=== PATIENT | male | born 1955 | race Caucasian/White ===

== ENCOUNTER 2019-02-14 01:08 | Inpatient (IN) | payer MEDICAID ==
[~2019-02-14 01:08] MED LIST: ALBU8.5H8 IH; CARB200T PO; CARV12.5 PO; CYAN-51 PO; FOLI1TAB16 PO; IPRA12.9 IH; MULT1TAB11 PO; THIA100T13 PO; TIOT18CA3 IH; VALS80TA2 PO
[2019-02-14] MEDS ORDERED: ACETAMINOPHEN 325 MG TABLET PO PRN (05:00)
[2019-02-14] MEDS ORDERED: MAG HYDROX/AL HYDROX/SIMETH 30 ML UDC PO PRN (05:00)
[2019-02-14] MEDS ORDERED: MAGNESIUM HYDROXIDE 30 ML UDC PO PRN (05:00)
[2019-02-14] MEDS ORDERED: ALBUTEROL FS 2.5 MG/3 ML VIAL.NEB NEB PRN (05:00)
[2019-02-14] MEDS ORDERED: ONDANSETRON HCL/PF 4 MG/2 ML VIAL IVP PRN (05:00)
[2019-02-14] MEDS ORDERED: Z GUARD REMEDY 2 OZ OINT TP PRN (05:00)
[2019-02-14] MEDS ORDERED: ZOLPIDEM TARTRATE 5 MG TABLET PO PRN (05:00)
[2019-02-14] MEDS ORDERED: LEVETIRACETAM (500MG) 500 MG/5 ML VIAL IV ONE (05:14)
[2019-02-14] MEDS: LEVETIRACETAM (500MG) 1,000 MG in IV NS 0.9% 100 ML IV SCH ×2 (05:18→17:04)
[2019-02-14] MEDS ORDERED: METRONIDAZOLE 500MG/ NS 100ML 100 ML IV ONE (05:29)
[2019-02-14] MEDS: METRONIDAZOLE 500MG/ NS 100ML 500 MG in PREMIX 1 EA IV SCH ×3 (05:32→21:21)
[2019-02-14] MEDS: IV NS 0.9% 1,000 ML IV PRN (05:33)
[2019-02-14] MEDS: LORAZEPAM INJ 2 MG/ML VIAL IV PRN ×4 (05:54→22:19)
[2019-02-14] MEDS: ASPIRIN EC 81 MG TABLET.DR PO SCH (08:52)
[2019-02-14] MEDS: HYDROCODONE/APAP 5/325MG 1 EACH TABLET PO PRN (13:25)
[2019-02-14] MEDS ORDERED: MULT-24 PO (13:32)
[2019-02-14] MEDS ORDERED: ZOLP5TAB2 PO (13:32)
[2019-02-14] MEDS ORDERED: ALBU8.5H8 IH (13:32)
[2019-02-14] MEDS ORDERED: FLUT1BLS IH (13:32)
[2019-02-14] MEDS ORDERED: VENL37.55 PO (13:32)
[2019-02-14] MEDS ORDERED: CHLO25CA22 PO (13:32)
[2019-02-14] MEDS: AZITHROMYCIN 500 MG in IV D5W 250 ML IV SCH (18:15)
[2019-02-14] MEDS: CEFTRIAXONE 1 G in IV D5W 50 ML IV SCH (21:21)
[2019-02-15] MEDS: IV NS 0.9% 1,000 ML IV PRN (01:54)
[2019-02-15] MEDS: LORAZEPAM INJ 2 MG/ML VIAL IV PRN ×4 (03:36→17:19)
[2019-02-15] MEDS: HYDROCODONE/APAP 5/325MG 1 EACH TABLET PO PRN (04:11)
[2019-02-15] MEDS: IPRATROPIUM NEB FS 0.5 MG/2.5 ML AMPUL.NEB NEB PRN (04:17)
[2019-02-15] MEDS: LEVETIRACETAM (500MG) 1,000 MG in IV NS 0.9% 100 ML IV SCH ×2 (04:57→18:19)
[2019-02-15] MEDS: METRONIDAZOLE 500MG/ NS 100ML 500 MG in PREMIX 1 EA IV SCH ×3 (04:58→21:25)
[2019-02-15] MEDS: Magnesium 1GM/D5W 100ML PREMIX 100 ML IV SCH ×4 (13:14→17:22)
[2019-02-15] MEDS: ASPIRIN EC 81 MG TABLET.DR PO SCH (14:13)
[2019-02-15] MEDS ORDERED: K PHOS NEUTRAL 250 MG TABLET PO ONE (15:30)
[2019-02-15] MEDS: AZITHROMYCIN 500 MG in IV D5W 250 ML IV SCH (18:20)
[2019-02-15] MEDS: CEFTRIAXONE 1 G in IV D5W 50 ML IV SCH (22:49)
[2019-02-16] MEDS: LORAZEPAM INJ 2 MG/ML VIAL IV PRN (02:39)
[2019-02-16] MEDS: METRONIDAZOLE 500MG/ NS 100ML 500 MG in PREMIX 1 EA IV SCH ×3 (05:32→22:06)
[2019-02-16] MEDS: LEVETIRACETAM (500MG) 1,000 MG in IV NS 0.9% 100 ML IV SCH ×2 (05:32→17:51)
[2019-02-16] MEDS: ASPIRIN EC 81 MG TABLET.DR PO SCH (09:58)
[2019-02-16] MEDS: HYDROCODONE/APAP 5/325MG 1 EACH TABLET PO PRN ×2 (12:33→23:43)
[2019-02-16] MEDS: AZITHROMYCIN 500 MG in IV D5W 250 ML IV SCH (16:38)
[2019-02-16] MEDS: CHLORDIAZEPOXIDE HCL 25 MG CAPSULE PO PRN (17:50)
[2019-02-16] MEDS: Magnesium 1GM/D5W 100ML PREMIX 100 ML IV SCH ×3 (17:51→20:12)
[2019-02-16] MEDS: ALBUTEROL FS 2.5 MG/3 ML VIAL.NEB NEB SCH ×2 (19:13→22:37)
[2019-02-16] MEDS ORDERED: Magnesium 1GM/D5W 100ML PREMIX PIGGYBACK IV ONE (22:00)
[2019-02-16] MEDS: ZOLPIDEM TARTRATE 5 MG TABLET PO PRN (22:20)
[2019-02-16] MEDS: CEFTRIAXONE 1 G in IV D5W 50 ML IV SCH (22:54)
[2019-02-17] MEDS: ALBUTEROL FS 2.5 MG/3 ML VIAL.NEB NEB SCH ×6 (02:57→23:10)
[2019-02-17] MEDS: LEVETIRACETAM (500MG) 1,000 MG in IV NS 0.9% 100 ML IV SCH (04:09)
[2019-02-17] MEDS: METRONIDAZOLE 500MG/ NS 100ML 500 MG in PREMIX 1 EA IV SCH (04:53)
[2019-02-17] MEDS: ASPIRIN EC 81 MG TABLET.DR PO SCH (10:09)
[2019-02-17] MEDS: MULTIVIT W/MINERALS 1 TAB TABLET PO SCH (10:09)
[2019-02-17] MEDS: VENLAFAXINE 37.5 MG TABLET PO SCH (10:10)
[2019-02-17] MEDS: FLUTICASONE/VILANTEROL 1 EACH BLST.W.DEV IH SCH (10:16)
[2019-02-17] MEDS: HYDROCODONE/APAP 5/325MG 1 EACH TABLET PO PRN ×2 (11:57→21:26)
[2019-02-17] MEDS: LORAZEPAM INJ 2 MG/ML VIAL IV PRN ×2 (12:05→20:45)
[2019-02-17] MEDS: METRONIDAZOLE 500 MG TABLET PO SCH ×2 (12:13→20:35)
[2019-02-17] MEDS: LEVETIRACETAM (250 MG) 250 MG TABLET PO SCH (17:49)
[2019-02-17] MEDS: AZITHROMYCIN 250 MG TABLET PO SCH (17:50)
[2019-02-17] MEDS: CEFTRIAXONE 1 G in IV D5W 50 ML IV SCH (21:28)
[2019-02-17] MEDS: ZOLPIDEM TARTRATE 5 MG TABLET PO PRN (23:02)
[2019-02-18] MEDS: ALBUTEROL FS 2.5 MG/3 ML VIAL.NEB NEB SCH ×6 (04:46→23:50)
[2019-02-18] MEDS: METRONIDAZOLE 500 MG TABLET PO SCH ×3 (05:00→20:20)
[2019-02-18] MEDS: HYDROCODONE/APAP 5/325MG 1 EACH TABLET PO PRN ×3 (06:01→20:21)
[2019-02-18] MEDS: LEVETIRACETAM (250 MG) 250 MG TABLET PO SCH ×2 (06:01→17:09)
[2019-02-18] MEDS: VENLAFAXINE 37.5 MG TABLET PO SCH (08:16)
[2019-02-18] MEDS: FLUTICASONE/VILANTEROL 1 EACH BLST.W.DEV IH SCH (08:16)
[2019-02-18] MEDS: MULTIVIT W/MINERALS 1 TAB TABLET PO SCH (08:16)
[2019-02-18] MEDS: ASPIRIN EC 81 MG TABLET.DR PO SCH (08:16)
[2019-02-18] MEDS: LORAZEPAM INJ 2 MG/ML VIAL IV PRN ×2 (08:17→22:14)
[2019-02-18] MEDS: Magnesium 1GM/D5W 100ML PREMIX 100 ML IV SCH ×3 (10:16→12:58)
[2019-02-18] MEDS: AZITHROMYCIN 250 MG TABLET PO SCH (17:09)
[2019-02-18] MEDS: CEFTRIAXONE 1 G in IV D5W 50 ML IV SCH (21:30)
[2019-02-19] MEDS: ALBUTEROL FS 2.5 MG/3 ML VIAL.NEB NEB SCH ×6 (04:12→23:52)
[2019-02-19] MEDS: LEVETIRACETAM (250 MG) 250 MG TABLET PO SCH ×2 (05:04→17:59)
[2019-02-19] MEDS: METRONIDAZOLE 500 MG TABLET PO SCH ×3 (05:05→21:25)
[2019-02-19] MEDS: LORAZEPAM INJ 2 MG/ML VIAL IV PRN ×4 (05:05→23:42)
[2019-02-19] MEDS: IPRATROPIUM NEB FS 0.5 MG/2.5 ML AMPUL.NEB NEB PRN (07:40)
[2019-02-19] MEDS: FLUTICASONE/VILANTEROL 1 EACH BLST.W.DEV IH SCH (08:32)
[2019-02-19] MEDS: MULTIVIT W/MINERALS 1 TAB TABLET PO SCH (08:32)
[2019-02-19] MEDS: ASPIRIN EC 81 MG TABLET.DR PO SCH (08:32)
[2019-02-19] MEDS: VENLAFAXINE 37.5 MG TABLET PO SCH (08:33)
[2019-02-19] MEDS: HYDROCODONE/APAP 5/325MG 1 EACH TABLET PO PRN ×2 (08:45→18:04)
[2019-02-19] MEDS: AZITHROMYCIN 250 MG TABLET PO SCH (17:59)
[2019-02-19] MEDS: CEFTRIAXONE 1 G in IV D5W 50 ML IV SCH (21:25)
[2019-02-19] MEDS: CHLORDIAZEPOXIDE HCL 25 MG CAPSULE PO PRN (21:31)
[2019-02-20] MEDS: ALBUTEROL FS 2.5 MG/3 ML VIAL.NEB NEB SCH ×4 (04:11→14:52)
[2019-02-20] MEDS: METRONIDAZOLE 500 MG TABLET PO SCH ×2 (04:26→12:36)
[2019-02-20] MEDS: LEVETIRACETAM (250 MG) 250 MG TABLET PO SCH ×2 (04:30→17:32)
[2019-02-20] MEDS: VENLAFAXINE 37.5 MG TABLET PO SCH (09:02)
[2019-02-20] MEDS: ASPIRIN EC 81 MG TABLET.DR PO SCH (09:02)
[2019-02-20] MEDS: MULTIVIT W/MINERALS 1 TAB TABLET PO SCH (09:02)
[2019-02-20] MEDS: FLUTICASONE/VILANTEROL 1 EACH BLST.W.DEV IH SCH (09:03)
[2019-02-20] MEDS: CHLORDIAZEPOXIDE HCL 25 MG CAPSULE PO PRN (09:34)
[2019-02-20] MEDS: Magnesium 1GM/D5W 100ML PREMIX 100 ML IV SCH ×4 (11:16→16:03)
[2019-02-20] MEDS ORDERED: AMOX-430 PO (11:34)
[2019-02-20] MEDS ORDERED: Magnesium 1GM/D5W 100ML PREMIX 100 ML IV SCH (12:00)
[2019-02-20] MEDS: LORAZEPAM INJ 2 MG/ML VIAL IV PRN (13:00)
[2019-02-20] MEDS: AZITHROMYCIN 250 MG TABLET PO SCH (17:32)
== END 2019-02-20 22:00 | DRG 720 ==
DX: A41.9 Sepsis, unspecified organism (principal); I21.A1 Myocardial infarction type 2; N17.0 Acute kidney failure with tubular necrosis; J69.0 Pneumonitis due to inhalation of food and vomit; R56.9 Unspecified convulsions; E44.0 Moderate protein-calorie malnutrition; F17.210 Nicotine dependence, cigarettes, uncomplicated; I25.10 Atherosclerotic heart disease of native coronary artery without angina pectoris; J44.9 Chronic obstructive pulmonary disease, unspecified; K57.90 Diverticulosis of intestine, part unspecified, without perforation or abscess without bleeding; I10 Essential (primary) hypertension; E83.39 Other disorders of phosphorus metabolism; E83.42 Hypomagnesemia; E86.0 Dehydration; F33.9 Major depressive disorder, recurrent, unspecified; D64.9 Anemia, unspecified; F41.9 Anxiety disorder, unspecified; K29.50 Unspecified chronic gastritis without bleeding; Z91.14 Patient's other noncompliance with medication regimen; E88.09 Other disorders of plasma-protein metabolism, not elsewhere classified; Z59.0 Homelessness; Y90.9 Presence of alcohol in blood, level not specified; Z68.23 Body mass index [BMI] 23.0-23.9, adult; F10.21 Alcohol dependence, in remission